=== PATIENT | female | born 1970 | race American Indian/Alaskan Native ===

== ENCOUNTER 2021-08-25 16:13 | Emergency (ER) | payer SELFPAY ==
[2021-08-25 16:25] VITALS: BP 154/86
--- NOTE | 2021-08-26 10:49 | Electrocardiograph Report ---
[facility] Test Date: 2021-08-25 Test Time: 16:30:18 Pat Name: KACEY BLACKWELL Department: Room: Gender: F Public Services Assistant: JUSTO : 1970 Requested By: YOLANDA PARDO Order Number: [id number] Reading MD: Fredis Patel Measurements Intervals [place] Rate: 79 P: 78 SC: 155 QRS: 53 QRSD: 79 T: 51 QT: 368 QTc: 422 Interpretive Statements Sinus rhythm No previous ECG available for comparison Electronically Signed On 08-26-2021 10:49:23 EDT by Fredis Patel
== END 2021-08-26 07:17 | disposition left against medical advice (07) ==
LOC: ED 16:13
DX: R53.1 Weakness (principal); Z53.21 Procedure and treatment not carried out due to patient leaving prior to being seen by health care provider
CPT/HCPCS: 93005